=== PATIENT | male | born 1985 | race Two or more races ===

== ENCOUNTER 2017-12-21 11:18 | Day surgery (SDC) | payer OTHER ==
[2017-12-20 11:13] VITALS: BMI 29.0
[~2017-12-21 11:18] MED LIST: LACTATED RINGERS 1,000 ML IV SCH
[2017-12-21 12:42] VITALS: RESP 18; TEMP 97.7
[2017-12-21] MEDS ORDERED: PROPOFOL 10 MG/ML 20 ML VIAL IV ONE (13:10)
[2017-12-21] MEDS ORDERED: GLYCOPYRROLATE 0.2 MG/ML 2 ML VIAL ONE (13:10)
[2017-12-21] MEDS ORDERED: LIDOCAINE 1% INJ 10MG/ML (20 ML MDV) ONE (13:10)
--- NOTE | 2017-12-21 13:18 | P.PCN ---
Date of Procedure: 12/21/17 Procedure(s) Performed: BRIEF HISTORY: Patient is a 32-year-old, pleasant, white male, scheduled for an upper endoscopy as a part of evaluation of epigastric/upper abdominal pain associated with postprandial abdominal bloating for the last few months duration. He tried Zantac for 2 weeks with no help. His and scheduled for an upper endoscopy to evaluate further. PROCEDURE PERFORMED: Esophagogastroduodenoscopy with biopsy. PREOPERATIVE DIAGNOSIS: Epigastric/upper abdominal pain and abdominal bloating of several weeks duration. IV sedation per anesthesia. PROCEDURE: After informed consent was obtained, the patient was brought into the endoscopy unit. IV sedation was administered by Anesthesia under continuous monitoring. Initially the Olympus GIF-140 video endoscope was inserted into the mouth. Esophagus intubated without any difficulty. It was gradually advanced into the stomach and duodenum and carefully examined. The bulb and the second part of the duodenum appeared normal. These were done from the duodenum to rule out celiac disease. The scope at this time was withdrawn to the stomach, adequately insufflated with air, and upon careful examination, mucosa of the antrum and scattered erosions and biopsies were done from this area. The, body , cardia and the fundus appeared normal. The scope was then withdrawn into the esophagus. The GE junction was located at 39 cm from the incisors. The esophagus appeared normal. There were 2 superficial erosions consistent with LA grade a reflux esophagitis. Rest of the esophagus appeared normal and the patient tolerated the procedure well. IMPRESSION: 1. Mild antral erosive gastritis. 2. LA grade A reflux esophagitis. RECOMMENDATIONS: The findings of this examination were discussed with the patient as well as his family. He was advised to follow with the biopsy results. He will be given a trial of Prilosec 20 mg daily for 6 weeks and he'll be seen in office in 6 weeks..
[2017-12-21 13:45] VITALS: BP 115/69; PULSE 63
== END 2017-12-21 14:04 | disposition home or self-care (01) ==
LOC: ORWHC2ENDO 11:18
PROVIDERS: ATTEND Internal Medicine Gastroenterology
DX: K29.60 Other gastritis without bleeding (principal); K21.0 Gastro-esophageal reflux disease with esophagitis; I10 Essential (primary) hypertension; Z79.899 Other long term (current) drug therapy; Z91.012 Allergy to eggs; Z91.010 Allergy to peanuts
CPT/HCPCS: 88305; 43239; J2001; J2704

== ENCOUNTER → 2021-02-21 | Outpatient (CLI) | payer MEDICAID ==
--- NOTE | 2021-02-21 12:28 | US ---
EXAMINATION TYPE: US abdomen complete DATE OF EXAM: 02/21/2021 COMPARISON: NONE CLINICAL HISTORY: 35-year-old male RUQ pain R10.11. Epigastric and RUQ pain radiating to back and andrade kens him at night; symptoms x months but increasing in frequency now. TECHNIQUE: Multiple sonographic images of the abdomen are obtained. FINDINGS: EXAM MEASUREMENTS: Liver Length: 11.9 cm Gallbladder Wall: 0.3 cm CBD: 0.3 cm Spleen: 13.69 cm Right Kidney: 11.7 x 5.3 x 5.6 cm Left Kidney: 11.3 x 6.0 x 5.1 cm Pancreas: Suboptimal visualization of the pancreatic tail due to shadowing from bowel gas. Liver: Slightly coarsened echotexture may be on a technical basis due to large body habitus. No focal lesion seen. Gallbladder: Small, mobile shadowing calculi are noted. No abnormal distention, wall thickening, or surrounding fluid. Evidence for sonographic Velez's sign: no CBD: wnl Spleen: Borderline in size. Right Kidney: No hydronephrosis or masses seen Left Kidney: No hydronephrosis or masses seen Upper IVC: wnl Abd Aorta: Mild fusiform dilatation distally but without any ectasia or aneurysm. IMPRESSION: 1. Slightly coarsened appearance to the liver may be on a technical basis due to large body habitus o r could reflect nonspecific hepatocellular disease. 2. Cholelithiasis. No evidence for acute cholecystitis or biliary ductal dilatation. 3. Borderline splenomegaly at 13.7 cm.
== END | disposition home or self-care (01) ==
LOC: RADUSWWP 07:33
PROVIDERS: ATTEND Surgery
DX: K80.20 Calculus of gallbladder without cholecystitis without obstruction (principal); K76.9 Liver disease, unspecified; R16.1 Splenomegaly, not elsewhere classified
CPT/HCPCS: 76700

== ENCOUNTER → 2021-03-25 | Outpatient (CLI) | payer MEDICAID | END | disposition home or self-care (01) | LOC: LABPAT 08:50 | PROVIDERS: ATTEND Surgery | DX: Z11.59 Encounter for screening for other viral diseases (principal) | CPT/HCPCS: U0003; C9803 ==

== ENCOUNTER 2021-03-30 14:11 | Day surgery (SDC) | payer MEDICAID ==
[2021-03-22 14:46] VITALS: BMI 30.9
[~2021-03-30 14:11] MED LIST changes: +DEXAMETHASONE SOD PHOSPHATE 4 MG/ML 1 ML VIAL IV ONE; +HEPARIN SODIUM,PORCINE/PF 5,000 UNIT/0.5 ML SYRINGE SQ PRN; +LIDOCAINE 1% (10MG/ML) FOR IV START INTRADERMA PRN; +ONDANSETRON 4 MG/2 ML VIAL IVP PRN; +SCOPOLAMINE 1.5MG/72HR PATCH TRANSDERM ONE
[2021-03-30 15:30] VITALS: TEMP 97.3
[2021-03-30] MEDS: HYDROmorphone 0.5 MG/0.5 ML SYRINGE IVP PRN ×4 (15:30→18:07)
[2021-03-30] MEDS ORDERED: INDOCYANINE GREEN 25 MG VIAL IV STA (15:46)
[2021-03-30] MEDS ORDERED: NEOSTIGMINE 1 MG/ML 10 ML VIAL ONE (15:50)
[2021-03-30] MEDS ORDERED: SUCCINYLCHOLINE CHLORIDE 100 MG/5 ML SYR IV ONE (15:50)
[2021-03-30] MEDS ORDERED: ROCURONIUM 10 MG/ML (5 ML VIAL) IV ONE (15:50)
[2021-03-30] MEDS ORDERED: PROPOFOL 10 MG/ML 20 ML VIAL IV ONE (15:50)
[2021-03-30] MEDS ORDERED: fentaNYL (PF) 50 MCG/ML 2 ML AMP ONE (15:50)
[2021-03-30] MEDS ORDERED: LIDOCAINE 1% INJ 10MG/ML (20 ML MDV) ONE (15:50)
[2021-03-30] MEDS ORDERED: GLYCOPYRROLATE 0.2 MG/ML 2 ML VIAL ONE (15:50)
[2021-03-30] MEDS ORDERED: MIDAZOLAM 2 MG/2 ML VIAL ONE (15:50)
[2021-03-30] MEDS ORDERED: BUPIVACAIN-EPI 0.25%-1:200,000 30 ML VIAL SQ ONE (16:14)
--- NOTE | 2021-03-30 17:01 | P.OP ---
Date of Procedure: 03/30/21 Preoperative Diagnosis: Symptomatic cholelithiasis Postoperative Diagnosis: Symptomatically cholelithiasis Procedure(s) Performed: Robotic cholecystectomy Anesthesia: MAYUR Surgeon: Haleigh Neal Pathology: other (Gallbladder and contents) Condition: stable Disposition: same day Indications for Procedure: 35-year-old male presented to the surgical clinic with complaints of right upper quadrant pain after meals. On workup, he was noted to have gallbladder disease in the past, however did avoid surgical intervention. He states that the discomfort and pain has worsened over the past year. On workup, he was found to have cholelithiasis. Plan is for robotic cholecystectomy. The patient was explained the risks, benefits and alternatives to procedure and did provide consent prior to attending the operating suite. Operative Findings: Omental adhesions to the gallbladder Distended gallbladder Description of Procedure: The patient was brought to the operating suite and placed in supine position on the operating table. Sedation was provided by anesthesia and the patient underwent endotracheal intubation. The patient was then prepped and draped in regular sterile fashion. An infraumbilical incision was made and dissection was carried to the fascia. The fascia was incised and the abdomen was entered. An 8 mm trocar was placed. Pneumoperitoneum was achieved. The patient was then placed in appropriate position. 2 additional 8 mm trochars were placed in the right lower quadrant and one was placed in the left lower quadrant. The robot was then docked. The gallbladder was then grasped and retracted. Multiple omental adhesions were present to the gallbladder and liver bed. These were removed with cautery. At this point dissection was carried along the peritoneum of the infundibulum of the gallbladder. The cystic duct was clearly visualized and was noted to be mildly distended. The gallbladder overall was distended. Dissection was carried to dissect the cystic duct from surrounding tissue and the cystic duct was skeletonized. The anatomy was confirmed under ICG technology. 2 clips were placed proximally and one was placed distally and the cystic duct was ligated. Additional dissection revealed the cystic artery. 2 clips were placed proximally and one was placed distally and the cystic artery was ligated. Cautery was used to dissect the gallbladder off of the liver bed. Hemostasis was maintained. The gallbladder was then placed in an Endo Catch bag and removed from the abdomen from the infraumbilical port site. Copious muss irrigation was used in the right upper quadrant and suctioned. The robot was undocked. The infraumbilical incision was closed under direct visualization using a Jai-Diana device and an 0 Vicryl suture. Pneumoperitoneum was released and all other ports removed from the abdomen. All skin incisions were closed with 4-0 Vicryl subcuticular suture. Sterile dressing was applied. The patient was awakened in the operating suite and taken to postanesthesia care unit in stable condition.
[2021-03-30] MEDS ORDERED: LACTATED RINGERS 1,000 ML IV ONE (17:45)
[2021-03-30] MEDS ORDERED: KETOROLAC 15 MG/ML 1 ML VIAL IVP ONE (18:09)
[2021-03-30] MEDS ORDERED: ONDANSETRON 4 MG/2 ML VIAL ONE (18:51)
[2021-03-30 19:53] VITALS: RESP 18
[2021-03-30 19:54] VITALS: BP 150/83; PULSE 89
== END 2021-03-30 21:20 | disposition home or self-care (01) ==
LOC: OR 14:11
PROVIDERS: ATTEND Surgery
DX: K80.20 Calculus of gallbladder without cholecystitis without obstruction (principal); K82.8 Other specified diseases of gallbladder; K66.0 Peritoneal adhesions (postprocedural) (postinfection)
CPT/HCPCS: 47600; S2900

== ENCOUNTER → 2022-03-13 | Outpatient (CLI) | payer MEDICAID ==
[2022-03-13 14:57] LABS: Basophils # (A) 0.01 X 10*3/uL (0.00-0.10); Basophils % (A) 0.2 %; Eosinophils # (A) 0.04 X 10*3/uL (0.04-0.35); HGB 13.9 g/dL (13.0-17.0); Immature Grans, Automated 0.5 %; Lymphocytes # (A) 1.66 X 10*3/uL (0.90-5.00); Lymphocytes % (A) 39.6 %; MCH 32.5 pg (27.0-32.0); MCHC 33.9 g/dL (32.0-37.0); MCV 95.8 fL (80.0-97.0); Mean Platelet Volume 10.5 fL (9.5-12.2); Monocytes # (A) 0.29 X 10*3/uL (0.20-1.00); Monocytes % (A) 6.9 %; NRBC Per 100 WBC 0 /100 WBCS (0.0-0.0); Neutrophils # (A) 2.17 X 10*3/uL (1.80-7.70); Neutrophils % (A) 51.8 %; Platelet Count 172 X 10*3/uL (140-440); RBC 4.28 X 10*6/uL (4.40-5.60); RDW 13.4 % (11.5-14.5); WBC 4.19 X 10*3/uL (4.50-10.00)
[2022-03-13 15:44] LABS: African American GFR (CKD) 126.1 (60.0-200.0); Albumin 4.7 g/dL (3.8-4.9); Albumin/Globulin Ratio 2.82 (1.60-3.17); Anion Gap 10.7 mmol/L (10.00-18.00); BUN/Creat Ratio 10.95 Ratio (12.00-20.00); Blood Urea Nitrogen 9.7 mg/dL (9.0-27.0); Calcium 9.6 mg/dL (8.7-10.3); Carbon Dioxide 28.7 mmol/L (20.0-27.5); Globulin 1.7 g/dL (1.6-3.3); Non-African American GFR(CKD) 108.8 (60.0-200.0); Potassium 4.8 mmol/L (3.5-5.5); Total Bilirubin 1.9 mg/dL (0.30-1.20); Total Protein 6.3 g/dL (6.2-8.2)
== END | disposition home or self-care (01) ==
LOC: LABWHC1 08:38
PROVIDERS: ATTEND Family Medicine
DX: I10 Essential (primary) hypertension (principal); E55.9 Vitamin D deficiency, unspecified
CPT/HCPCS: 36415; 80053; 82306; 84443; 85025

== ENCOUNTER → 2023-08-06 | Outpatient (CLI) | payer MEDICAID ==
[2023-08-06 17:25] LABS: Basophils # (A) 0.01 X 10*3/uL (0.00-0.10); Basophils % (A) 0.2 %; Eosinophils # (A) 0.05 X 10*3/uL (0.04-0.35); Eosinophils % (A) 1.1 %; HCT 40.7 % (39.6-50.0); HGB 14.4 g/dL (13.0-17.0); Lymphocytes # (A) 2.16 X 10*3/uL (0.90-5.00); Lymphocytes % (A) 47.2 %; MCH 32.7 pg (27.0-32.0); MCHC 35.4 g/dL (32.0-37.0); MCV 92.3 FL (80.0-97.0); Mean Platelet Volume 10.1 FL (9.5-12.2); Monocytes # (A) 0.39 X 10*3/uL (0.20-1.00); Monocytes % (A) 8.5 %; NRBC Per 100 WBC 0 X 10*3/uL (0.00-0.01); Neutrophils # (A) 1.95 X 10*3/uL (1.80-7.70); Neutrophils % (A) 42.6 %; Platelet Count 186 X 10*3/uL (140-440); RBC 4.41 X 10*6/uL (4.40-5.60); RDW 12.7 % (11.5-14.5); WBC 4.58 X 10*3/uL (4.50-10.00)
[2023-08-06 17:39] LABS: Chol/HDL Ratio 4.67 Ratio; LDL Cholesterol,Calculated 159.9 mg/dL (0.0-131.0)
[2023-08-06 18:01] LABS: ALT 30 U/L (10-49); AST 32 U/L (14-35); Alkaline Phosphatase 68 U/L (41-126); BUN/Creat Ratio 20.33 Ratio (12.00-20.00); Blood Urea Nitrogen 18.3 mg/dL (9.0-27.0); Calcium 9.9 mg/dL (8.7-10.3); Carbon Dioxide 25.4 mmol/L (21.6-31.8); Chloride 99 mmol/L (96-109); Glucose 105 mg/dL (70-110); Potassium 4.4 mmol/L (3.5-5.5); Sodium 137 mmol/L (135-145); Total Bilirubin 2.3 mg/dL (0.3-1.2)
== END | disposition home or self-care (01) ==
LOC: LABWHC1 08:44
PROVIDERS: ATTEND Family Medicine
DX: Z00.00 Encounter for general adult medical examination without abnormal findings (principal); I10 Essential (primary) hypertension; E55.9 Vitamin D deficiency, unspecified
CPT/HCPCS: 36415; 80053; 80061; 82306; 84443; 85025